=== PATIENT | male | born 1970 | race American Indian/Alaskan Native ===

== ENCOUNTER 2020-10-11 03:42 | Emergency (ER) | payer SELFPAY ==
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
[2020-10-11 04:03] VITALS: BP 142/89
== END 2020-10-11 04:02 ==
LOC: ED 03:42
DX: F10.10 Alcohol abuse, uncomplicated (principal); V89.2XXA Person injured in unspecified motor-vehicle accident, traffic, initial encounter; Y92.410 Unspecified street and highway as the place of occurrence of the external cause; Y93.89 Activity, other specified; Y99.8 Other external cause status
CPT/HCPCS: 99282